=== PATIENT | female | born 1985 | race Caucasian/White ===

== ENCOUNTER → 2018-11-17 | Outpatient (CLI) | payer OTHER ==
[~2018-11-17] MED LIST: BUPR200T2 PO; CHOL10003 PO; IBUP200T44 PO
--- NOTE | 2018-11-17 21:50 | PAIN ---
DATE OF SERVICE: 11/17/2018 INITIAL CONSULTATION FOR PAIN CLINIC CHIEF COMPLAINT: Low back and right lower extremity pain. HISTORY OF PRESENT ILLNESS: This is a 32-year-old female who presents with history of pain in the low back, right lower extremity, posterior gluteus, posterior thigh, posterior calf for about 7-8 years, started with years ago. The patient reports it was on and off since that time and now is going more constant in the low back and the right leg. The patient reports it is throbbing, intermittent in intensity, radiating down the right leg, is described as burning and aching across the low back as well, worse with walking, standing, changing positions, better with sitting or lying down, but can awaken her from sleep occasionally, but not most nights. The patient reports it is better with sitting or lying down, occasionally affects her ability to walk, does not affect her bowel or bladder control. The patient reports she has had physical therapy, she has had chiropractic treatment. She is currently doing ongoing exercises. All these have helped to a moderate extent in the past, but nothing that has lasted for very long. The patient reports she is taking muscle relaxant as well as Motrin. Motrin helps better than muscle relaxers. She is taking quite a bit of them every day. The patient reports no loss of motor function with significant fatigability with the right leg with ambulating, even more than about 10-15 minutes. There is also problem with driving the car using her right leg as well. The patient did have an MRI scan of the lumbar spine showing L4-L5 and L5-S1, mild bulging with mild facet degenerative changes seen and mild disk degeneration at L5-S1. L4-L5 shows minimal bulging noted with [id number] facet degenerative changes, greater on the right. The patient reports her disability rating from 0 to 10, 10 being the worst, is 3 with family and home responsibilities, occupation, 5 with recreation activities, 2 with social activity, 1 with sexual behavior and self-care and 0 with life support activities. PAST MEDICAL HISTORY: Significant for questionable hypertension or borderline hypertension, Kate's thyroiditis, anxiety. PREVIOUS SURGERY: Include removal of an abdominal cyst at age 17, previous appendectomy and wisdom teeth extraction. ALLERGIES: The patient has no known drug allergies. CURRENT MEDICATIONS: Include Wellbutrin, vitamin D and motrin. FAMILY HISTORY: Significant for no major medical problems or conditions that she is listed. SOCIAL HISTORY: The patient drinks about 1-3 alcoholic drinks about 2-3 times a month; does not smoke; does not use any illegal, illicit or recreational drugs. She is and lives with her spouse, has 3 children living at home, lives at [place], [place]. REVIEW OF SYSTEMS: The patient's review of systems is positive for those items mentioned in history of present illness. All systems reviewed and otherwise negative. It is complete, full and well documented on the patient's chart. PHYSICAL EXAMINATION: VITAL SIGNS: The patient's blood pressure is 140/89, pulse is 80, respirations 16, temperature 98.3 degrees Fahrenheit. Height is 5 feet 2 inches, weight is 142 pounds. GENERAL: The patient is awake, alert, oriented, appropriate, very pleasant demeanor. HEENT: Shows normocephalic, atraumatic. Extraocular movements are intact and symmetrical. Oral cavity: Mucous membranes moist and pink. Dentition intact. NECK: Shows anterior throat supple without palpable lymphadenopathy noted. Swallow reflex symmetrical. CHEST: Shows normal on inspection. Breath sounds clear to auscultation bilaterally. HEART: Shows S1, S2 clear. No murmurs auscultated. ABDOMEN: Soft, nontender, nondistended. No palpable organomegaly is noted. No rebound or guarding demonstrated. BACK: Shows spine grossly in the midline. Normal-appearing thoracic kyphosis and lumbar lordotic curvature. Lumbar paraspinous muscle shows symmetrical on inspection. On palpation shows some moderate tenderness diffusely, but only in the low lumbar distribution, slightly more on the right than the left. The patient shows no tenderness over the spinous processes, sacrum or sacroiliac regions. The patient has good rotational motion of lumbar spine, both laterally greater than 10 degrees right and left as well as extension greater than 10 degrees, forward flexion 45 degrees without significant pain reported. EXTREMITIES: Lower extremities show deep tendon reflexes 2+ in the patellar, 1+ tendo-calcaneus tendons. Motor exam is approximately 4 on a scale 5 on the right with dorsiflexion, extension 5/5 on the left. Peripheral pulses are 1+ posterior tibial. No peripheral edema is noted. Straight leg raise noted to be negative for reproduction of radicular symptoms bilaterally as is Gaenslen's and Favian's maneuvers negative for pain bilaterally. Peripheral pulses are 1+ posterior tibia. No peripheral edema is noted. Lower extremities are warm and dry to touch, equal in color and appearance. The patient is able to stand, stand on her toes without difficulty or loss of balance, walks with a normal-appearing gait for short distance in the office, not using any assistive devices to ambulate such as canes or walkers. The patient's SKIN: Shows warm and dry, good turgor. No edema. No sores, rashes or bruising throughout. IMPRESSION: This is a 32-year-old female with: 1. Approximately 7-8 years history of low back and right lower extremity pain in a radicular fashion. 2. MRI scan of lumbar spine as noted. 3. Borderline hypertension. 4. Kate's thyroiditis. PLAN: Options were discussed with the patient including conservative medical management, physical therapy, interventional techniques. She has done physical therapies and medication management in the past and she would like to pursue interventional techniques. We discussed a lumbar epidural steroid injection using description as well as anatomical models to describe the procedure. The patient will wait for preauthorization with her insurance provider and have her return once this is obtained and we will plan on lumbar epidural steroid injection at L5-S1 for her L5-S1 radiculopathy on the right leg at that time. SUSANNA WILDER MD DR: BALTA/valeria JOB#: [id number] / [id number]
== END | disposition home or self-care (01) ==
LOC: PNCL 10:21
PROVIDERS: ATTEND Anesthesiology
DX: M79.604 Pain in right leg (principal); E06.3 Autoimmune thyroiditis; R03.0 Elevated blood-pressure reading, without diagnosis of hypertension; Z90.49 Acquired absence of other specified parts of digestive tract; Z79.899 Other long term (current) drug therapy
CPT/HCPCS: G0463

== ENCOUNTER → 2018-12-01 | Outpatient (CLI) | payer OTHER ==
--- NOTE | 2018-12-02 03:53 | PAIN ---
DATE OF SERVICE: 12/01/2018 PROGRESS NOTE FOR PAIN CLINIC DIAGNOSIS: Lumbar radiculopathy with lumbar degenerative disk disease. HISTORY OF PRESENT ILLNESS: The patient is a 32-year-old who returns for followup status post initial evaluation and preauthorization for lumbar epidural steroid injection. The patient has obtained this now and would like to proceed. The patient still has pain in the low back, right lower extremity, posterior gluteus, posterior thigh, posterior calf, again intermittently in the leg, but persistent in the low back. The patient reports it is a 7 on a scale of 10 at its worst, 2 on average and 0 at its least over the past week and is a 2 today. The patient reports it is burning, aching, dull, radiating at times into the right lower extremity. The patient reports no new motor or sensory deficits, no new bowel or bladder incontinence or other complaints. PHYSICAL EXAMINATION: VITAL SIGNS: Today, the patient's blood pressure is 136/82, pulse 70, respirations 16, temperature is 98.1 degrees Fahrenheit. Height is 5 feet 2 inches and weight is 140 pounds. GENERAL: The patient is awake, alert, oriented, appropriate, very pleasant demeanor. HEENT: Head is normocephalic, atraumatic. Extraocular movements are intact and symmetrical. Oral cavity: Mucous membranes are moist and pink. Dentition is intact. NECK: Shows anterior throat supple without palpable lymphadenopathy noted. Swallow reflex symmetrical. CHEST: Shows normal with inspection. Breath sounds clear to auscultation bilaterally. HEART: Shows S1, S2 clear. No murmurs auscultated. ABDOMEN: Soft, nontender, nondistended. BACK: Shows spine grossly in the midline. Lumbar paraspinous muscle shows symmetrical on inspection, with palpation shows some mild tenderness in the inferior aspect of the lumbar paraspinous muscles, but only diffusely without radiation. EXTREMITIES: The patient's lower extremities show deep tendon reflexes 2+ in the patellar and 1+ in tendo calcaneus tendons. Motor exam is strong with approximately 4 on a scale of 5 on the right, 5/5 on the left dorsiflexion and extension. Peripheral pulses are 1+ posterior tibial. No peripheral edema is noted. Options were discussed with the patient. The patient's old chart was reviewed as her current medication regimen updated. Current review of systems updated today as well. We will proceed with a lumbar epidural steroid injection today with fluoroscopic guidance. Risks were again discussed including, but not limited to, bleeding, infection, possibility of epidural hematoma, subsequent neurologic compromise, dural puncture, headaches, spinal cord and/or nerve damage, side effects of steroid medication and poor results regarding pain control. The patient understands and wished to proceed. The patient will return to the clinic in approximately 2 weeks for followup. She was counseled as to return appointment, activity level and side effects to be aware of. DIAGNOSIS: Lumbar radiculopathy with lumbar degenerative disk disease. PROCEDURE: Lumbar epidural steroid injection, translaminar approach at L5-S1 level using C-arm fluoroscopic guidance under sterile prep and drape using local anesthetic. MEDICATION INJECTED: A total of 120 mg Depo-Medrol plus 10 mL of preservative-free normal saline and 2 mL of Isovue for contrast. CONDITION ON DISCHARGE: Stable. The patient tolerated the procedure well and had no complications. SUSANNA WILDER MD DR: BALTA/valeria JOB#: [id number] / [id number]
== END ==
LOC: PNCL 13:46
PROVIDERS: ATTEND Anesthesiology
DX: M51.16 Intervertebral disc disorders with radiculopathy, lumbar region (principal)
CPT/HCPCS: 62323; J1030; J1040; Q9965